=== PATIENT | male | born 1950 | race Caucasian/White ===

== ENCOUNTER 2017-10-16 10:29 | Outpatient (CLI) | payer MEDICARE, MEDICAID, SELFPAY ==
[2017-10-16 13:14] LABS: Cholesterol 204 mg/dL (50-200); HDL Cholesterol 56 mg/dL (40-60); LDL CHOLESTEROL 142 mg/dL (<100); Triglyceride 65 mg/dL (30-150)
== END 2017-10-16 10:30 ==
PROVIDERS: PCP Emergency Medicine; Visit Provider Emergency Medicine
DX: E78.5 Hyperlipidemia, unspecified (principal)
CPT/HCPCS: 36415; 80061; 83721

== ENCOUNTER 2018-06-27 11:20 | Outpatient (CLI) | payer MEDICARE, SELFPAY ==
[2018-06-27 13:29] LABS: TSH 1.69 uIU/mL (0.358-3.74)
== END 2018-06-27 11:40 ==
PROVIDERS: PCP Emergency Medicine; Visit Provider Emergency Medicine
DX: E03.9 Hypothyroidism, unspecified (principal)
CPT/HCPCS: 36415; 84443

== ENCOUNTER 2018-07-11 11:47 | Outpatient (REF) | payer MEDICARE, SELFPAY ==
--- NOTE | 2018-07-11 10:00 | SKI_PTH ---
PATIENT: Elias Dominguez V LOC: [facility] U#:[id number] AGE/SX: 68/M ROOM: RE07/11/[address]: Miguel Jean Baptiste DO : 1950 BED: DIS: 07/11/2018 SPEC #: [id number] RECD: 07/11/18 12:36 STATUS: [facility] REQ #: [id number] STARR: 07/11/18 10:[address]: Miguel Jean Baptiste DEPT: Surgical Specimen RECD BY: Otilia Fagan Tissues: 1 - SKIN BIOPSY(SHAVE/PUNCH) Procedures: SKIN LEVEL 4 Comments: [id number]
== END 2018-07-11 12:07 ==
LOC: LBN 11:47
PROVIDERS: PCP Emergency Medicine; Visit Provider Emergency Medicine
DX: L82.1 Other seborrheic keratosis (principal)
CPT/HCPCS: 88305

== ENCOUNTER → 2018-09-26 11:19 | Outpatient (BNVA) | payer MEDICARE, SELFPAY | PROVIDERS: PCP Emergency Medicine; Referring Provider Emergency Medicine; Visit Provider Physical Therapy Assistant | DX: Z12.11 Encounter for screening for malignant neoplasm of colon (principal); Z80.0 Family history of malignant neoplasm of digestive organs; J44.9 Chronic obstructive pulmonary disease, unspecified ==

== ENCOUNTER 2018-10-31 10:29 | Day surgery (SDC) | payer MEDICARE, SELFPAY ==
[2018-10-31 10:55] VITALS: BP 119/91; PULSE 67; RESP 18; TEMP 36.2; O2SAT 97
[2018-10-31] MEDS: Lactated Ringers 1,000 ML 80 ML IV (11:14)
--- NOTE | 2018-10-31 11:22 | W.PM.DSUDISC ---
Discharge Plan Disposition Patient Disposition: HOME Condition: Good Discharge Details Reason For Visit: Colonoscopy Attending Provider: Christa Acuna Primary Care Provider: Miguel Jean Baptiste Home Meds and New Rx's Prescriptions: Continued pravastatin 20 mg tablet 20 mg PO DAILY Qty: 90 RF: 3 ibuprofen 400 MG tablet 400 mg PO PRN RF: 0 Discharge Instructions Additional Instructions: Findings: One small polyp was removed. My office will contact you with biopsy results. Diverticulosis was present. Take in 30 grams of fiber daily. Follow up: Plan for a colonoscopy in 5 years. Please call if you develop: fevers >101.5 Nausea or Vomiting Abdominal pain that is not transient DAY SURGERY UNIT POST COLONOSCOPY INSTRUCTIONS 1. Because there will be medication in your system for the next 24 hours, you may feel a little sleepy. Your coordination will be affected. Therefore: a. Do not drive or operate dangerous equipment for 24 hours. b. Do not drink alcohol beverages for 24 hours (not even beer). c. Plan to go home and rest for the day. 2. Generally there are no restrictions on your activity after a day or so has gone by, but you may feel a bit fatigued for a few days. 3 After you arrive home you may have a light meal and return to a normal diet as you can tolerate it without feeling sick to your stomach. 4. After surgery, you may feel pain or discomfort. This should be only transient, but if it persists please contact your doctor. 5. If there are any questions regarding the findings of your procedure, please feel free to contact your doctor. 6. If you are unable to contact your doctor with a problem, contact the hospital at [phone]. 7. Continue all your regular medications unless directed otherwise. I understand the above instructions and have no questions. Signature of Patient or Responsible Adult Escort Date/Time Name of Responsible Adult Escort Signature of Nurse Date/Time Activity:: Activity as Tolerated Diet:: As Tolerated Discharge Orders Discharge Orders: Discharge Order (Routine); Ordered 10/31/18 Ordered By: Christa Acuna DS: Diagnosis Discharge Diagnosis (1) Colon polyp: Status: Acute (2) Diverticulosis: Status: Acute
--- NOTE | 2018-10-31 11:48 | BOWEL_PTH ---
PATIENT: Elias Dominguez V LOC: [facility] U#:[id number] AGE/SX: 68/M ROOM: RE10/31/[address]: Christa Acuna MD : 1950 BED: DIS: 10/31/2018 SPEC #: [id number] RECD: 10/31/18 12:54 STATUS: [facility] REQ #: [id number] STARR: 10/31/18 11:[address]: Christa Acuna DEPT: Surgical Specimen RECD BY: Theresa Pop ENTERED: 10/31/18 12:54 SP TYPE: Bowel OTHR DR: Miguel Jean Baptiste DO Tissues: 1 - BIOPSY BOWEL Procedures: GROSS AND MICRO LEVEL 4 Comments: [id number]
[2018-10-31 12:39] VITALS: BP 111/73; PULSE 58; RESP 16; TEMP 36.4; O2SAT 95
--- NOTE | 2018-10-31 13:42 | COLE_ITS ---
DATE OF PROCEDURE: October 31, 2018 PREOPERATIVE DIAGNOSIS: Screening. POSTOPERATIVE DIAGNOSIS: 1. Ascending colon polyp. 2. Diverticulosis. PROCEDURE: Colonoscopy with cold forceps polypectomy. SURGEON: Christa Acuna M.D. ANESTHESIA: General. INDICATIONS: This is a 68-year-old man whose last colonoscopy in 2007 was normal. He presents for a routine colon evaluation. PROCEDURE: He was placed in the left Savage position. Propofol was titrated to sedation. Digital rec melia examination revealed slightly diminished rectal tone. The scope was advanced to the cecum withou t difficulty. The ileocecal valve and appendiceal orifice were clearly identified. In the mid ascen ding colon there was a diminutive polyp that was removed completely with a cold forceps and sent to p athology. No other abnormalities were noted throughout the transverse or descending colon. The sigm oid region revealed mild diverticular change. The rectum was normal, including on retroflex view. H e tolerated the procedure well and was stable to recovery. If the polyp is adenomatous he will need a follow-up colonoscopy again in 5 years. cc: Miguel Jean Baptiste D.O.
== END 2018-10-31 13:08 | disposition home or self-care (01) ==
PROVIDERS: PCP Emergency Medicine; Visit Provider Surgery
PROC: 0DJD8ZZ Inspection of Lower Intestinal Tract, Via Natural or Artificial Opening Endoscopic (ICD-10-PCS; CPT 45378; principal; 2018-10-31 13:00)
DX: Z12.11 Encounter for screening for malignant neoplasm of colon (principal); D12.2 Benign neoplasm of ascending colon; K57.30 Diverticulosis of large intestine without perforation or abscess without bleeding; J44.9 Chronic obstructive pulmonary disease, unspecified
CPT/HCPCS: 45380; 88305

== ENCOUNTER 2019-11-03 16:02 | Outpatient (REF) | payer MEDICARE, SELFPAY ==
[2019-11-03 14:06] LABS: Calculated LDL 124 mg/dL (<100); Cholesterol 195 mg/dL (<200); HDL Cholesterol 57 mg/dL (40-60); Triglyceride 73 mg/dL (<150)
[2019-11-03 22:19] LABS: PSA, Screening 1.5 ng/mL (0.0-4.5)
== END 2019-11-03 16:22 ==
LOC: LBN 16:02
PROVIDERS: PCP Emergency Medicine; Visit Provider Emergency Medicine
DX: E78.5 Hyperlipidemia, unspecified (principal); Z12.5 Encounter for screening for malignant neoplasm of prostate
CPT/HCPCS: 80061; 84153

== ENCOUNTER 2023-05-22 12:54 | Outpatient (REF) | payer MEDICARE, SELFPAY ==
[2023-05-22 18:37] LABS: C Diff PCR Positive (Negative)
== END 2023-05-22 12:55 | disposition home or self-care (01) ==
LOC: LBN 12:54
PROVIDERS: PCP Family Medicine; Visit Provider Nurse Practitioner Adult Health
DX: L29.0 Pruritus ani (principal)
CPT/HCPCS: 87493

== ENCOUNTER 2023-06-12 04:32 | Outpatient (CLI) | payer MEDICARE, SELFPAY ==
[2023-06-12 16:19] LABS: Calculated LDL 152 mg/dL (<100); Cholesterol 224 mg/dL (<200); Glucose 97 mg/dL (74-106); HDL Cholesterol 63 mg/dL (40-60); Triglyceride 49 mg/dL (<150)
== END 2023-06-12 04:33 | disposition home or self-care (01) ==
LOC: LOS 04:32
PROVIDERS: PCP Family Medicine; Visit Provider Family Medicine
DX: E78.5 Hyperlipidemia, unspecified (principal); R73.9 Hyperglycemia, unspecified
CPT/HCPCS: 36415; 80061; 82947

== ENCOUNTER 2024-06-11 10:40 | Outpatient (RCR) | payer MEDICARE, SELFPAY ==
--- NOTE | 2024-06-16 11:26 | W.HOLTRPT ---
Date of service: 06/16/24 Time of Service: 11:26 Holter Monitor Report Referring Provider:: Steven Chaves Indications:: Palpitations Holter Monitor Note: This is a 48-hour Holter monitor. Rhythm throughout was sinus with an average heart rate of 78. Minimum was 44, maximum 144 There were rare ventricular ectopic beats. There were occasional atrial premature beats. A total of 2 self-limited atrial runs occurred. The longest of these was 7 beats in duration. There was no atrial fibrillation, no high-grade AV block, no pauses greater than 3 seconds. Reported symptoms corresponded to sinus rhythm
== END 2024-06-24 23:59 | disposition home or self-care (01) ==
LOC: CARDOPNVT 10:40
PROVIDERS: PCP Family Medicine; Visit Provider Internal Medicine Cardiovascular Disease
DX: R00.2 Palpitations (principal)
CPT/HCPCS: 93227; 93225

== ENCOUNTER 2024-06-23 11:31 | Outpatient (CLI) | payer MEDICARE, SELFPAY ==
[2024-06-23 13:31] LABS: Calculated LDL 149 mg/dL (<100); Cholesterol 230 mg/dL (<200); HDL Cholesterol 66 mg/dL (>or=40); Triglyceride 78 mg/dL (<150)
[2024-06-24 09:33] LABS: Alpha 1 Antitrypsin,Serum 150 mg/dL (90-200)
== END 2024-06-23 11:32 | disposition home or self-care (01) ==
LOC: LOS 11:31
PROVIDERS: PCP Family Medicine; Referring Provider Family Medicine; Visit Provider Family Medicine
DX: R06.02 Shortness of breath (principal); E78.5 Hyperlipidemia, unspecified
CPT/HCPCS: 36415; 80061; 82103

== ENCOUNTER 2024-10-15 09:46 | Outpatient (CLI) | payer MEDICARE, SELFPAY ==
[2024-10-15 12:52] LABS: Abs Immature Grans 0.01 10^3/uL (0.0-0.06); HCT 47.1 % (40.0-50.0); HGB 15.7 g/dL (13.5-17.5); Immature Grans % 0.3 %; MCH 30.9 pg (27.0-33.0); MCHC 33.3 % (32.0-36.0); MCV 93 fL (80-95); MPV 10.9 fL (8.0-11.0); Platelet Count 232 10^3/uL (130-400); RBC 5.08 10^6/uL (4.36-5.78); RDW 12.8 % (11.8-14.1); RDW-SD 43.8 fL; WBC 3.70 10^3/uL (4.4-10.8)
[2024-10-15 13:03] LABS: ALT 27 U/L (16-63); AST 31 U/L (15-37); Albumin 4.0 g/dL (3.4-5.0); Alkaline Phosphatase 90 U/L (46-116); Anion Gap 9.1 mmol/L (3-11); BUN 27 mg/dL (7-18); Bilirubin, Total 1.2 mg/dL (0.2-1.0); CO2 29.9 mmol/L (21.0-32.0); Calcium 9.1 mg/dL (8.5-10.1); Chloride 103 mmol/L (98-107); Estimated GFR 90.74 (mL/min/1.73m2); Glucose 101 mg/dL (74-106); Potassium 4.2 mmol/L (3.5-5.1); Sodium 142 mmol/L (136-145); Total Protein 7.3 g/dL (6.4-8.2)
== END 2024-10-15 09:47 | disposition home or self-care (01) ==
LOC: LOS 09:46
PROVIDERS: PCP Family Medicine; Visit Provider Nurse Practitioner Family
DX: L08.9 Local infection of the skin and subcutaneous tissue, unspecified (principal)
CPT/HCPCS: 36415; 80053; 85025

== ENCOUNTER 2024-10-15 18:16 | Outpatient (REF) | payer MEDICARE, SELFPAY | END 2024-10-15 18:17 | disposition home or self-care (01) | LOC: LBN 18:16 | PROVIDERS: PCP Family Medicine; Visit Provider Nurse Practitioner Family | DX: L08.9 Local infection of the skin and subcutaneous tissue, unspecified (principal) | CPT/HCPCS: 87101; 87102; 87206 ==